=== PATIENT | female | born 1955 | race Caucasian/White ===

== ENCOUNTER → 2021-04-15 22:04 | Emergency (ER) | payer MEDICAID ==
--- NOTE | 2021-04-15 22:04 | NUR ---
CALLED PATIENT BACK NO RESPONSE.
--- NOTE | 2021-04-15 22:10 | NUR ---
CALLED PATIENT BACK NO RESPONSE.
--- NOTE | 2021-04-15 22:16 | NUR ---
PATIENT LEFT WITHOUT BEING SEEN BY DR. MALIK. NO FURTHER CARE PROVIDED FOR PATIENT.
== END | disposition left against medical advice (07) ==
LOC: MED 22:04
DX: Z53.21 Procedure and treatment not carried out due to patient leaving prior to being seen by health care provider (principal)